=== PATIENT | female | born 1995 | race Caucasian/White ===

== ENCOUNTER 2017-02-09 12:39 | Emergency (ER) | payer SELFPAY ==
[2017-02-09 12:42] VITALS: BP 139/77; BMI 38.0
[2017-02-09] MEDS ORDERED: NS 1000 ML 1,000 ML ONE (13:07)
[2017-02-09] MEDS ORDERED: TORADOL 30 MG VIAL ONE (13:07)
[2017-02-09] MEDS ORDERED: TORADOL 30 MG VIAL IVP ONE (13:18)
[2017-02-09] MEDS ORDERED: NS 1000 ML 1,000 ML IV ONE (13:18)
--- NOTE | 2017-02-09 13:33 | DR.FEVERAD ---
HPI - Time seen Time seen: 12:50 - PCP Primary Care Physician: NFD - Complaints/Symptoms Chief Complaint Doctor Comments: patient presents with complaint of bodyaches, headache, fever for two days. Chief Complaint:: PT. C/O HIGH FEVER AND HEADACHE. - Source History Provided: Patient - Mode of Arrival Mode of Arrival: Ambulatory - Timing Onset of Chief Complaint: 02/08/17 PMH - PMH Past Medical History: No Past Surgical History: Yes Surgical History: Tonsillectomy - Family History History of Family Medical Conditions: No - Social History Does patient currently use any type of tobacco product: No Have you used tobacco products in the last 12 months: No Type of Tobacco Use: None Does any household member use tobacco: No Alcohol Use: None Do you use any recreational Drugs:: No Lives With: Family Lives Where: Home - infectious screening In the last 2 months have you had wt loss of >10#?: NO Have you had fever, night sweats or hemotysis?: No Have you traveled outside the country in the last 6 months?: No Isolation: Standard ROS - Review of Systems Constitutional: Chills, Fever, Malaise Eyes: No Symptoms Reported ENTM: Nose Discharge Respiratoy: Dry Cough Cardiovascular: No Symptoms Reported Gastrointestinal/Abdominal: No Symptoms Reported Genitourinary: No Symptoms Reported Neurological: No Symptoms Reported Musculoskeletal: No Symptoms Reported Integumentary: No Symptoms Reported Hematologic/Lymphatic: No Symptoms Reported Endocrine: No Symptoms Reported Psychiatric: No Symptoms Reported All Other Systems: Reviewed and Negative PE - Vital Signs Vitals: Temperature 99.3 F Pulse Rate 124 Respiratory Rate 20 Blood Pressure [Left Arm] 127/82 Blood Pressure [Right Arm] 110/57 Blood Pressure 139/77 O2 Sat by Pulse Oximetry 98 - General Limitations: No Limitations General Appearance: Alert, In No Apparent Distress - Head Head Exam: Normal Inspection, Atraumatic - Eyes Eye exam: Normal Appearance, PERRL, EOMI - ENT ENT Exam: Normal Exam External Ear Exam: Normal External Inspection TM/Canal Exam: Bilateral Normal Nose Exam: Normal Nose Exam Nasal Speculum Exam: Bilateral Other (rhinorrhea) Mouth Exam: Normal Inspection Teeth Exam: Normal Inspection Throat Exam: Normal Inspection - Neck Neck Exam: Normal Inspection, Full ROM - Respiratory Respiratory Exam: Normal Lung Sounds Bilat Respiratory Exam: Lower Clear to Auscultation - Cardiovascular Cardiovascular Exam: Tachycardia - Abdominal Exam Abdominal Exam: Normal Inspection, Normal Bowel Sounds Abdominal Tenderness: RUQ, RLQ, LUQ, LLQ, Epigastrium, Suprapubic, Diffuse, Mild , Moderate, Severe, Other - Extremities Extremities Exam: Normal Inspection, Full ROM - Back Back Exam: Normal Inspection, Full ROM - Neurologic Neurological Exam: Alert, Oriented X3, CN II-XII Intact - Psychiatric Psychiatric Exam: Normal Affect - Skin Skin Exam: Warm, Dry, Intact Type of Lesion: negative: Rash, Abscess, Laceration, Foreign Body, Bite/Sting, Abrasion, Other ROR - Labs Reviewed Laboratory Results Reviewed?: Yes (influenza A) Laboratory: Influenza Type A (PCR) Positive (NEGATIVE) A 02/09/17 13:00 Influenza Type B (PCR) Negative (NEGATIVE) 02/09/17 13:00 - Diagnosis Discharge Problem: Influenza A - Discharge Plan Condition: Stable - Follow ups/Referrals Follow ups/Referrals: NFD,None [Primary Care Provider] - 3 days - Instructions
== END 2017-02-09 14:20 | disposition home or self-care (01) ==
LOC: ER 12:52
DX: J11.1 Influenza due to unidentified influenza virus with other respiratory manifestations (principal)
CPT/HCPCS: 87502; 96365; 96367; 96374; 99282; A4222; J1885